=== PATIENT | female | born 1990 | race Caucasian/White ===

== ENCOUNTER → 2018-04-28 | Outpatient (CLI) | payer MEDICAID | LOC: CIMAGING 09:03 | PROVIDERS: ATTEND Family Medicine | DX: R10.2 Pelvic and perineal pain (principal); N83.9 Noninflammatory disorder of ovary, fallopian tube and broad ligament, unspecified; Z97.5 Presence of (intrauterine) contraceptive device | CPT/HCPCS: 76856-PO ==